=== PATIENT | male | born 1995 | race African-American/Black ===

== ENCOUNTER → 2022-08-20 | Day surgery (SDC) | payer OTHER ==
[~2022-08-20] VITALS: Ht 185.4 cm; Wt 78.9 kg
[~2022-08-20] MED LIST: AMLO5TAB4; BUPIVACAINE HCL/PF 0.5% (5MG/ML) 30ML ONE; DEXAMETHASONE 4MG/ML 1ML VIAL ONE; FENTANYL CITRATE/PF 50MCG/ML 2ML VIAL ONE; HYDR-3512 PO; HYDROMORPHONE HCL/PF 2MG/ML CPJ IV PRN; HYDROMORPHONE HCL/PF 2MG/ML CPJ ONE; LABETALOL 5MG/ML SYR 20 MG/4 ML SYRINGE IV PRN; LACTATED RINGERS 1,000 ML IV SCH; LIDOCAINE HCL 1% 10 MG/ML 10ML VIAL ONE; MEPERIDINE HCL/PF 25MG/ML CPJ IV PRN; MIDAZOLAM HCL 2 MG/2 ML VIAL ONE; ONDANSETRON HCL 4MG/2ML INJ IV PRN; ONDANSETRON HCL 4MG/2ML INJ ONE; PROPOFOL 200MG/20ML VIAL IV ONE; SKIN ADHESIVE 0.7 GM EA TOP ONE; TOPUD PO
[2022-08-20 14:22] VITALS: BP 150/92
== END | disposition home or self-care (01) ==
LOC: OR 10:03
PROVIDERS: ATTEND Surgery
DX: R22.2 Localized swelling, mass and lump, trunk (principal); D36.7 Benign neoplasm of other specified sites; Z79.899 Other long term (current) drug therapy; Z98.890 Other specified postprocedural states; Z20.822 Contact with and (suspected) exposure to COVID-19
CPT/HCPCS: 21931; 87426; C9803; J1100; J1170; J2175; J2250; J2405; J2704; J3010; J3490